=== PATIENT | male | born 1975 | race Caucasian/White ===

== ENCOUNTER 2024-07-13 03:36 | Emergency (ER) | payer SELFPAY ==
[2024-07-13] MEDS ORDERED: Sodium Chloride 0.9% 10 ML Syringe FLUSH PRN (03:37)
[2024-07-13 03:54] LABS: BASOPHILS ABSOLUTE AUTO 0.04 K/uL (0.00-0.20); BASOPHILS PERCENT AUTO 0.7 % (0.0-1.0); EOSINOPHILS ABSOLUTE AUTO 0.19 K/uL (0.00-0.45); EOSINOPHILS PERCENT AUTO 3.5 % (0.0-6.0); HEMATOCRIT 43.1 % (42.0-52.0); HEMOGLOBIN 15.7 g/dL (14.0-18.0); IMMATURE GRAN ABSOLUTE AUTO 0.03 K/uL (0.00-0.05); IMMATURE GRAN PERCENT AUTO 0.5 % (0.0-0.4); LYMPHOCYTES PERCENT AUTO 32.7 % (24.0-44.0); MEAN CORPUSCULAR HEMOGLOBIN 30.3 pg (28.0-32.0); MEAN CORPUSCULAR HGB CONC 36.4 g/dL (32.0-36.0); MEAN CORPUSCULAR VOLUME 83.2 fL (83.0-99.0); MEAN PLATELET VOLUME 10.8 fL (9.4-12.4); MONOCYTES PERCENT AUTO 7.3 % (0.0-8.0); NEUTROPHILS ABSOLUTE AUTO 3.04 K/uL (1.80-7.70); NEUTROPHILS PERCENT AUTO 55.3 % (41.0-71.0); PLATELET COUNT,PLT 180 K/uL (150-400); RED BLOOD CELL COUNT 5.18 M/uL (4.52-5.90)
[2024-07-13 04:07] LABS: INR 1.01 (0.86-1.11)
[2024-07-13] MEDS: Sodium Chloride 0.9% 1,000 ML IV ONE (04:08)
[2024-07-13] MEDS: Morphine 4 MG/ML Syringe IVPUSH ONE (04:09)
[2024-07-13] MEDS: Ondansetron 4 MG/2 ML SDV IVPUSH ONE (04:09)
[2024-07-13] MEDS: Pantoprazole 40 MG in Sodium Chloride 0.9% 10 ML IVPUSH ONE (04:09)
[2024-07-13 04:27] LABS: A/G RATIO 1.2 (0.9-1.6); ALBUMIN 4.1 g/dL (3.4-5.0); BILIRUBIN TOTAL 0.4 mg/dL (0.2-1.0); CALCIUM 9.1 mg/dL (8.5-10.1); CARBON DIOXIDE,CO2 27.8 mmol/L (21.0-32.0); POTASSIUM,K 3.5 mmol/L (3.5-5.1); PROTEIN TOTAL,TP 7.5 g/dL (6.4-8.2)
[2024-07-13] MEDS: Alum Hydrox/Mag Hydrox/Simeth 15 ML, Metoclopramide 5 MG, Lidocaine 2% 5 ML PO ONE (04:48)
[2024-07-13] MEDS: Iopamidol 755 MG/ML 500 ML Multipack Bottle IVPUSH ONE (05:41)
[2024-07-13] MEDS: HYDROmorphone 0.5 MG/0.5 ML Syringe IVPUSH ONE (05:58)
== END 2024-07-13 06:38 | disposition home or self-care (01) ==
LOC: MW.ED 03:36
DX: K29.20 Alcoholic gastritis without bleeding (principal); K80.20 Calculus of gallbladder without cholecystitis without obstruction; I10 Essential (primary) hypertension; Z79.899 Other long term (current) drug therapy; Z75.8 Other problems related to medical facilities and other health care; Y90.1 Blood alcohol level of 20-39 mg/100 ml
CPT/HCPCS: 36415; 74177; 80053; 80307; 83605; 83690; 85025; 85610; 96361; 96374; 96375; 99284; A9270; J2270; J2405; J2470; J7030; Q9967

== ENCOUNTER 2024-08-01 06:27 | Day surgery (SDC) | payer OTHER ==
[2024-08-01] MEDS: Lactated Ringers 1,000 ML IV SCH (06:50)
[2024-08-01] MEDS ORDERED: Lidocaine 2% 5 ML SDV ONE (07:34)
[2024-08-01] MEDS ORDERED: propofoL 500 MG/50 ML 50 ML ONE (07:34)
[2024-08-01] MEDS ORDERED: Propofol 200 MG/20 ML SDV ONE (08:19)
[2024-08-01] MEDS ORDERED: Lactated Ringers 1,000 ML IV SCH (09:15)
== END 2024-08-01 09:30 | disposition home or self-care (01) ==
LOC: MW.SDS 06:27
PROVIDERS: ATTEND Surgery
DX: Z12.11 Encounter for screening for malignant neoplasm of colon (principal); K29.50 Unspecified chronic gastritis without bleeding; K64.8 Other hemorrhoids; K20.0 Eosinophilic esophagitis; I10 Essential (primary) hypertension; K80.20 Calculus of gallbladder without cholecystitis without obstruction; F17.290 Nicotine dependence, other tobacco product, uncomplicated; Z79.899 Other long term (current) drug therapy
CPT/HCPCS: 43239; 45378; J2704; J7120; 00813; J3490